=== PATIENT | female | born 1950 | race Caucasian/White ===

== ENCOUNTER 2024-09-13 12:37 | Emergency (ER) | payer MEDICARE ==
[2024-09-13 13:55] VITALS: BP 141/97; PULSE 64; RESP 18; TEMP 96.9; O2SAT 98
[2024-09-13 14:32] LABS: Appearance Clear (Clear); Bacteria None Seen /HPF (None Seen); Bilirubin Negative (Negative); Blood Negative (Negative); Epithelial Cells None Seen /HPF (None Seen); Glucose, Urine 500 mg/dL (Negative); Hyaline Casts NONE SEEN /LPF (0-2); Ketones Negative (Negative); Leukocyte Esterase Negative (Negative); Nitrite Negative (Negative); Ph 6.5 (4.6-8.0); Protein,Urine Dip Negative (Negative); RBC 0-2 /HPF (0-5); Urobilinogen 0.2 mg/dL (0.2); WBC 0-2 /HPF (0-5)
[2024-09-13 14:42] LABS: Absolute Neutrophil Ct (ANC) 4.69 x10^3/uL (1.56-6.13); BASOPHIL % 0.3 % (0.1-1.2); Basophil (Absolute #) 0.02 x10^3/uL (0.01-0.08); Eosinophil % 2.3 % (0.7-5.8); Eosinophil (Absolute #) 0.17 x10^3/uL (0.04-0.36); Hematocrit 42.8 % (34.1-44.9); Hemoglobin 13.9 g/dL (11.2-15.7); IMMATURE GRAN # 0.03 x10^3u/L (0.001-0.031); IMMATURE GRAN % 0.4 % (0.001-0.429); Lymphocyte (Absolute #) 2.08 x10^3/uL (1.18-3.74); Lymphocytes % 27.6 % (19.3-51.7); Mean Cell Volume 84.1 fL (79.4-94.8); Mean Corpuscular Hemoglobin 27.3 pg (25.6-32.2); Mean Corpuscular Hgb Concent. 32.5 g/dL (32.2-35.5); Mean Platelet Volume 10.2 fL (9.4-12.3); Monocyte (Absolute #) 0.54 x10^3/uL (0.24-0.86); Monocytes % 7.2 % (4.7-12.5); Neutrophil % 62.2 % (34.0-71.1); Platelet Count 183 x10^3/uL (182-369); Red Blood Count 5.09 x10^6/uL (3.93-5.22); Red Cell Distribution Width 13.7 % (11.7-14.4); White Blood Count 7.5 x10^3/uL (3.98-10.04)
[2024-09-13 15:06] LABS: ALBUMIN 4.1 g/dL (3.5-5.0); ALKALINE PHOSPHATASE 117 U/L (38-126); ANION GAP 10.3 MEQ/L (5-15); BLOOD UREA NITROGEN 14 mg/dL (7-17); CHLORIDE 102 mmol/L (98-107); Calcium 9.5 mg/dL (8.4-10.2); Carbon Dioxide 31 mmol/L (22-30); Creatinine 1 0.69 mg/dL (0.52-1.04); EST GLOMERULAR FILTRATION RATE 90.5 ML/MIN; Glucose 106 mg/dL (74-106); Potassium 3.9 mmol/L (3.5-5.1); SGOT/AST 28 U/L (14-36); SGPT/ALT 21 U/L (0-35); SODIUM 139 mmol/L (135-145); TROPONIN < 0.012 ng/mL (0.000-0.033); Total Protein 7.6 g/dL (6.3-8.2)
--- NOTE | 2024-09-13 15:17 | XRAY ---
Indication: Speech change one month. Multiple contiguous axial images obtained through the head without contrast. Comparison: None Age-appropriate global atrophy and mild periventricular degenerative micro-ischemia bilaterally. Remote lacunar infarct right caudate head and left basal ganglia. No acute intracranial hemorrhage, abnormal extra axial fluid collection, or mass effect. Fourth ventricle is midline without hydrocephalus. Bony calvarium intact. Visualized paranasal sinuses and mastoid air cells are clear. Impression: Nonacute senile brain. Remote lacunar infarcts right caudate head and left basal ganglia.
--- NOTE | 2024-09-13 16:05 | ERPHSYRPT ---
- History of Present Illness Time Seen by Provider: 09/13/24 13:53 Source: patient, family Exam Limitations: no limitations Patient Subjective Stated Complaint: PT. STATES, "I HAVE HAD TROUBLE WITH MY SPEECH FOR MONTHS, BUT MY FAMILY GOT WORRIED LAST NIGHT AND WANTED ME TO GET CHECKED! I LOST MY ACCUCHECK MACHINE SO I COULDN'T CHECK BY SUGAR AND I THOUGHT IT MAY BE LOW AND AFFECTING MY SPEECH." Triage Nursing Assessment: PT PRESENTS TO ER AMBULATORY WITHOUT DIFF, A&OX3, SPEECH IS CLEAR. RESP EVEN UNLABORED. ABLE TO MOVE ALL FOUR EXT. NO WEAKNESS. Physician History: 74-year-old female with history of hypertension, diabetes mellitus presented to the ER with complaints of issues with speech for over a month. Patient reports it seems like she is struggling with words at times. Patient called her primary care today and is sent to the ER for further evaluation. Patient does not report any worsening today. She thinks it is because of her lower denture is out and may be not articulating very well. Denies any headache, visual disturbance, numbness tingling or focal weakness. Patient is accompanied by son who does attest to having these symptoms for more than a month and no new worsening. Allergies/Adverse Reactions: No Known Drug Allergies Allergy (Verified 09/13/24 14:10) Home Medications: Empagliflozin/Metformin HCl [Synjardy Xr 10-1,000 mg Tablet] 1 tab PO DAILY 09/13/24 [History] Gabapentin [Neurontin ] 1 tab PO DAILY 09/13/24 [History] Semaglutide [Ozempic] 0.25 mg IN WEEKLY 09/13/24 [History] Hx Tetanus, Diphtheria Vaccination/Date Given: Yes Hx Influenza Vaccination/Date Given: Yes Hx Pneumococcal Vaccination/Date Given: Yes Immunizations Up to Date: No Travel Risk - International Travel Have you traveled outside of the country in past 3 weeks: No - Emerging Infectious Disease Are you exhibiting symptoms associated with any current EIDs: No - Review of Systems Constitutional: No Symptoms Eyes: No Symptoms Ears, Nose, & Throat: No Symptoms Respiratory: No Symptoms Cardiac: No Symptoms Abdominal/Gastrointestinal: No Symptoms Genitourinary Symptoms: No Symptoms Musculoskeletal: No Symptoms Skin: No Symptoms Neurological: Speech Changes Psychological: No Symptoms Hematologic/Lymphatic: No Symptoms Immunological/Allergic: No Symptoms - Past Medical History Endocrine Medical History: Diabetes Type II - Past Surgical History Past Surgical History: Yes Neuro Surgical History: No Pertinent History Cardiac: No Pertinent History Respiratory: No Pertinent History Gastrointestinal: No Pertinent History Genitourinary: No Pertinent History Female Surgical History: Tubal Ligation Other Surgical History: COLON RESECTION D/T COLON CA - Social History Smoking Status: Former smoker Exposure to second hand smoke: Yes Drug Use: none - Social Determinants of Health Will the patient participate in the screening: Yes Do you worry about a steady place to live?: No Do you have any problems with any of the following?: No known problems In the past 12 months,have you had to go without utilities?: No Transportation Issues: No Has anyone in your support network made you feel unsafe?: No Have you or anyone in your house had to go without enough: No - Nursing Vital Signs Nursing Vital Signs: Initial Vital Signs Temperature 96.9 F 09/13/24 13:46 Pulse Rate 64 09/13/24 13:46 Respiratory Rate 18 09/13/24 13:46 Blood Pressure 141/97 09/13/24 13:46 O2 Sat by Pulse Oximetry 98 09/13/24 13:46 Pain Scale Pain Intensity 0 - Physical Exam General Appearance: no apparent distress, alert Eye Exam: PERRL/EOMI Ears, Nose, Throat Exam: normal ENT inspection, TMs normal, pharynx normal, moist mucous membranes Neck Exam: normal inspection, non-tender, supple, full range of motion Respiratory Exam: normal breath sounds, lungs clear Cardiovascular Exam: regular rate/rhythm, normal heart sounds Gastrointestinal/Abdomen Exam: soft, normal bowel sounds, No tenderness Back Exam: normal inspection, normal range of motion Extremity Exam: normal inspection, normal range of motion, pelvis stable Neurologic Exam: alert, oriented x 3, cooperative, jewelry facer II-XII nml as tested, normal mood/affect, nml cerebellar function, sensation nml, No motor deficits Skin Exam: normal color SpO2 Interpretation: normal SpO2: 98 O2 Delivery: Room Air - Course EKG Interpreted by Me: RATE (64), Sinus Rhythm, NORMAL AXIS, NORMAL INTERVALS, NORMAL QRS Ordered Tests: Active Orders 24 hr Category Date Time Status Screen Cutter And Trimmer STAT Care 09/13/24 14:16 Active EKG-ER Only STAT Care 09/13/24 14:15 Active HEAD WITHOUT CONTRAST [CT] Stat Exams 09/13/24 14:16 Completed CBC W DIFF Stat Lab 09/13/24 14:15 Completed CMP Stat Lab 09/13/24 14:42 Completed MAGNESIUM Stat Lab 09/13/24 14:42 Completed TROPONIN Q4H Lab 09/13/24 14:42 Completed TROPONIN Q4H Lab 09/13/24 18:15 Ordered TROPONIN Q4H Lab 09/13/24 22:15 Ordered UA W/RFX UR CULTURE Stat Lab 09/13/24 14:24 Completed Lab/Rad Data: Laboratory Result Diagrams 09/13/24 14:15 09/13/24 14:42 Laboratory Results 09/13/24 09/13/24 09/13/24 Range/Units 14:42 14:24 14:15 WBC 7.5 (3.98-10.04) x10^3/uL RBC 5.09 (3.93-5.22) x10^6/uL Hgb 13.9 (11.2-15.7) g/dL Hct 42.8 (34.1-44.9) % MCV 84.1 (79.4-94.8) fL MCH 27.3 (25.6-32.2) pg MCHC 32.5 (32.2-35.5) g/dL RDW 13.7 (11.7-14.4) % Plt Count 183 (182-369) x10^3/uL MPV 10.2 (9.4-12.3) fL Gran % 62.2 (34.0-71.1) % Immature Gran % (Auto) 0.4 (0.001-0.429) % Nucleat RBC Rel Count 0.0 (0.00-0.2) % Eos # (Auto) 0.17 (0.04-0.36) x10^3/uL Immature Gran # (Auto) 0.03 (0.001-0.031) x10^3u/L Absolute Lymphs (auto) 2.08 (1.18-3.74) x10^3/uL Absolute Monos (auto) 0.54 (0.24-0.86) x10^3/uL Absolute Nucleated RBC 0.00 (0.00-0.012) x10^3u/L Lymphocytes % 27.6 (19.3-51.7) % Monocytes % 7.2 (4.7-12.5) % Eosinophils % 2.3 (0.7-5.8) % Basophils % 0.3 (0.1-1.2) % Absolute Granulocytes 4.69 (1.56-6.13) x10^3/uL Basophils # 0.02 (0.01-0.08) x10^3/uL Sodium 139 (135-145) mmol/L Potassium 3.9 (3.5-5.1) mmol/L Chloride 102 (98-107) mmol/L Carbon Dioxide 31 H (22-30) mmol/L Anion Gap 10.3 (5-15) MEQ/L BUN 14 (7-17) mg/dL Creatinine 0.69 (0.52-1.04) mg/dL Estimated GFR 90.5 ML/MIN Glucose 106 (74-106) mg/dL Calcium 9.5 (8.4-10.2) mg/dL Magnesium 2.0 (1.6-2.3) mg/dL Total Bilirubin 0.70 (0.2-1.3) mg/dL AST 28 (14-36) U/L ALT 21 (0-35) U/L Alkaline Phosphatase 117 (38-126) U/L Troponin I < 0.012 (0.000-0.033) ng/mL Serum Total Protein 7.6 (6.3-8.2) g/dL Albumin 4.1 (3.5-5.0) g/dL Urine Color Yellow (Yellow) Urine Appearance Clear (Clear) Urine pH 6.5 (4.6-8.0) Ur Specific [place] 1.010 (1.005-1.030) Urine Protein Negative (Negative) Urine Glucose (UA) 500 A (Negative) mg/dL Urine Ketones Negative (Negative) Urine Blood Negative (Negative) Urine Nitrite Negative (Negative) Urine Bilirubin Negative (Negative) Urine Urobilinogen 0.2 (0.2) mg/dL Ur Leukocyte Esterase Negative (Negative) U Hyaline Cast (Auto) NONE SEEN (0-2) /LPF Urine Microscopic RBC 0-2 (0-5) /HPF Urine Microscopic WBC 0-2 (0-5) /HPF Ur Epithelial Cells None Seen (None Seen) /HPF Urine Bacteria None Seen (None Seen) /HPF Urine Culture Reflexed NO (NO) - Progress Progress: unchanged Progress Note: 09/13/24 16:03 74-year-old is evaluated in the ER for changes in speech for almost over a month. Patient has no obvious difficulty speech. When upper dentures are removed her speech is better. Could have some element of lower denture which she is not using for quite some time. Patient has no focal neurodeficit otherwise. Normal white count, unremarkable chemistries and CT showed old infarct and no new findings. I do not think patient needs to be admitted and need for inpatient workup but can refer outpatient follow-up with primary care and neurology for further evaluation. Discussed signs symptoms of worsening needing return to ER which patient/family seem understanding. Stable for discharge. Counseled pt/family regarding: lab results, diagnosis, need for follow-up, rad results Medical Desision Making - Independent Historian Additional History obtained from: Child - Diagnostic Testing Diagnostic test were ordered, analyzed, and reviewed by me: Yes Radiological Interpretation: Reviewed by me - Departure Departure Disposition: Home Clinical Impression: Alteration in speech Condition: Stable Critical Care Time: No Referrals: DARYL LUBIN MD [Primary Care Provider] - Follow up with PCP 1 day ROSA M HAMILTON [NON-STAFF PHY W/O PRIVILEGES] - Follow up/PCP as directed (Call for appointment for reevaluation) Instructions: Dysarthria Additional Instructions: Follow-up with primary care and neurology for reevaluation. Use your dentures. Return to ER if having difficulty speech, numbness tingling focal weakness or visual disturbance etc.
== END 2024-09-13 16:56 | disposition home or self-care (01) ==
LOC: ED 12:37
DX: R47.9 Unspecified speech disturbances (principal); I10 Essential (primary) hypertension; E11.9 Type 2 diabetes mellitus without complications; Z79.84 Long term (current) use of oral hypoglycemic drugs; Z79.85 Long-term (current) use of injectable non-insulin antidiabetic drugs; Z79.899 Other long term (current) drug therapy
CPT/HCPCS: 36415; 70450; 80053; 81001; 83735; 84484; 85025; 93005; 99283; 99285

== ENCOUNTER 2025-02-20 14:48 | Emergency (ER) | payer MEDICARE ==
[2025-02-20 15:49] VITALS: RESP 18; TEMP 97.4
[2025-02-20 16:04] VITALS: O2SAT 96
[2025-02-20 16:26] LABS: Absolute Neutrophil Ct (ANC) 11.47 x10^3/uL (1.56-6.13); BASOPHIL % 0.1 % (0.1-1.2); Basophil (Absolute #) 0.02 x10^3/uL (0.01-0.08); Eosinophil % 0.1 % (0.7-5.8); Eosinophil (Absolute #) 0.02 x10^3/uL (0.04-0.36); Hematocrit 46.7 % (34.1-44.9); Hemoglobin 15.4 g/dL (11.2-15.7); IMMATURE GRAN # 0.07 x10^3u/L (0.001-0.031); IMMATURE GRAN % 0.5 % (0.001-0.429); Lymphocyte (Absolute #) 1.36 x10^3/uL (1.18-3.74); Lymphocytes % 9.6 % (19.3-51.7); Mean Cell Volume 82.9 fL (79.4-94.8); Mean Corpuscular Hemoglobin 27.4 pg (25.6-32.2); Mean Platelet Volume 10.1 fL (9.4-12.3); Monocyte (Absolute #) 1.18 x10^3/uL (0.24-0.86); Monocytes % 8.4 % (4.7-12.5); Neutrophil % 81.3 % (34.0-71.1); Platelet Count 219 x10^3/uL (182-369); Red Blood Count 5.63 x10^6/uL (3.93-5.22); Red Cell Distribution Width 14.4 % (11.7-14.4); White Blood Count 14.1 x10^3/uL (3.98-10.04)
[2025-02-20 16:37] LABS: ALBUMIN 4.3 g/dL (3.5-5.0); ANION GAP 14.3 MEQ/L (5-15); BILIRUBIN,TOTAL 1.1 mg/dL (0.2-1.3); Calcium 9.1 mg/dL (8.4-10.2); Creatinine 1 0.74 mg/dL (0.52-1.04); EST GLOMERULAR FILTRATION RATE 84.3 ML/MIN; Potassium 3.9 mmol/L (3.5-5.1); Total Protein 7.5 g/dL (6.3-8.2)
--- NOTE | 2025-02-20 17:12 | XRAY ---
Indication: Pain following fall. Comparison: None 2 view right ribs demonstrates osteopenia, moderate right shoulder degenerative arthropathy, and minimal/mild multilevel degenerative spondylosis. No other bony, articular, or soft tissue abnormalities. Single PA chest demonstrates normal heart and lungs. Remaining bony thorax intact with osteopenia and moderate left shoulder degenerative arthropathy. Impression: Nonacute right ribs and PA chest with chronic features.
--- NOTE | 2025-02-20 17:16 | XRAY ---
Indication: Pain following fall. Multiple contiguous axial images obtained through the head without contrast. Comparison: September 13, 2024 Again age-appropriate global atrophy and mild periventricular degenerative micro-ischemia bilaterally. No acute intracranial hemorrhage, abnormal extra-axial fluid collection, or mass effect. Fourth ventricle is midline without hydrocephalus. New small right frontal scalp hematoma. Bony calvarium intact. Visualized paranasal sinuses and mastoid air cells are clear. Impression: New right frontal scalp hematoma. Otherwise continued nonacute senile brain.
--- NOTE | 2025-02-20 17:18 | XRAY ---
Indication: Pain following fall. Multiple contiguous axial images obtained through the cervical spine. Sagittal and coronal reformatted images obtained. Comparison: None Osseous structures demineralized consistent with patient's age. Axial images negative for acute fracture, suspicious bony lesions, or spinal canal stenosis. Facets are symmetric. Sagittal and coronal reformatted images demonstrates normal alignment with vertebral body heights/disc spaces maintained. No acute compression fracture, subluxation, or jumped facet. Normal appearing craniocervical junction. Visualized noncontrasted soft tissues demonstrates mild bilateral carotid and aortic arch calcifications. Lung apices clear. Impression: Osteopenia and arteriosclerotic disease. Remaining CT cervical spine is negative.
--- NOTE | 2025-02-20 17:20 | ERPHSYRPT ---
- History of Present Illness Time Seen by Provider: 02/20/25 15:06 Source: patient, family Exam Limitations: no limitations Patient Subjective Stated Complaint: PT states "I went out with my dogs and I stumbled and fell hitting my head. I also think I cracked a rib." Triage Nursing Assessment: Pt presented alert and oriented X 3, skin wpd. pt ambulates with assistance, able to speak in clear full sentences. Pt resting comfortably on the bed. Pt has large hematoma noted to right forehead, tenderness to right lower ribs. Physician History: 74-year-old female with a history of diabetes mellitus, CAD, on Eliquis presented in the ER after she stumbled while she was walking her dog and fell on concrete this morning. Patient reports she did hit her head on the right forehead area without LOC. Also hit her right lower ribs and felt as if she cracked her rib. No difficulty breathing. Denies any chest pain palpitations or shortness of breath before or after the fall. No vomiting. Complaining of mild headache and aches and pains all over. Patient was not able to get up and crawled herself out of the patio to get for some help but she was on the floor for almost 6 hours. She has superficial abrasions to the right hand but no pain. No injury anywhere else reported. Allergies/Adverse Reactions: No Known Drug Allergies Allergy (Verified 09/13/24 14:10) Home Medications: Empagliflozin/Metformin HCl [Synjardy Xr 10-1,000 mg Tablet] 1 tab PO DAILY 09/13/24 [History] Gabapentin [Neurontin ] 1 tab PO DAILY 09/13/24 [History] Semaglutide [Ozempic] 0.25 mg IN WEEKLY 09/13/24 [History] Apixaban [Eliquis 2.5 mg Tablet] 5 mg PO BID 02/20/25 [History] Rosuvastatin Calcium 10 mg PO DAILY 02/20/25 [History] Hx Tetanus, Diphtheria Vaccination/Date Given: Yes Hx Influenza Vaccination/Date Given: Yes Hx Pneumococcal Vaccination/Date Given: Yes Immunizations Up to Date: No Travel Risk - International Travel Have you traveled outside of the country in past 3 weeks: No - Emerging Infectious Disease Are you exhibiting symptoms associated with any current EIDs: No - Review of Systems Constitutional: No Symptoms Eyes: No Symptoms Ears, Nose, & Throat: No Symptoms Respiratory: No Symptoms Cardiac: Chest Pain Abdominal/Gastrointestinal: No Symptoms Genitourinary Symptoms: No Symptoms Musculoskeletal: Arthralgias, Fall, Injury Skin: No Symptoms Neurological: Headache Psychological: No Symptoms Endocrine: No Symptoms Hematologic/Lymphatic: Easy Bleeding Immunological/Allergic: No Symptoms - Past Medical History Endocrine Medical History: Diabetes Type II - Past Surgical History Past Surgical History: Yes Neuro Surgical History: No Pertinent History Cardiac: No Pertinent History Respiratory: No Pertinent History Gastrointestinal: No Pertinent History Genitourinary: No Pertinent History Female Surgical History: Tubal Ligation Other Surgical History: COLON RESECTION D/T COLON CA - Social History Smoking Status: Former smoker Exposure to second hand smoke: Yes Drug Use: none - Social Determinants of Health Will the patient participate in the screening: Yes Do you worry about a steady place to live?: No Do you have any problems with any of the following?: No known problems In the past 12 months,have you had to go without utilities?: No Transportation Issues: No Has anyone in your support network made you feel unsafe?: No Have you or anyone in your house had to go w/o enough food: No - Nursing Vital Signs Nursing Vital Signs: Initial Vital Signs Temperature 97.4 F 02/20/25 15:44 Pulse Rate 84 02/20/25 15:44 Respiratory Rate 18 02/20/25 15:44 Blood Pressure 153/99 02/20/25 15:44 O2 Sat by Pulse Oximetry 98 02/20/25 15:44 Pain Scale Pain Intensity 5 - Orange Coma Score Best Eye Response (Orange): (4) open spontaneously Best Verbal Response (Orange): (5) oriented Best Motor Response ([place]): (6) obeys commands Orange Total: 15 - Physical Exam General Appearance: no apparent distress, alert Head Injury: contusions, ecchymosis, swelling, tenderness (Right forehead with no step in deformity) Eye Exam: PERRL/EOMI, eyes nml inspection ENT Exam: airway nml, No evidence of ENT injury, No dental injury Neck Exam: supple, trachea midline, full range of motion, normal alignment Respiratory/Chest Exam: chest tenderness (Right lower chest wall with no crepitus or flail segment), normal breath sounds, No respiratory distress Cardiovascular Exam: normal heart sounds, regular rate/rhythm Gastrointestinal Exam: soft, normal bowel sounds, No tenderness Back Exam: normal inspection, normal range of motion Extremity Exam: normal inspection, normal range of motion, pelvis stable Neurologic Exam: alert, oriented x 3, cooperative Skin Exam: normal color, other (Abrasion right hand with no tenderness) SpO2 Interpretation: normal SpO2: 96 O2 Delivery: Room Air Ordered Tests: Active Orders 24 hr Category Date Time Status CERVICAL SPINE WO CONTRAST [CT] Stat Exams 02/20/25 16:02 Completed HEAD WITHOUT CONTRAST [CT] Stat Exams 02/20/25 16:02 Completed RIBS UNILATERAL W/ PA CXR Stat Exams 02/20/25 16:02 Completed CBC W DIFF Stat Lab 02/20/25 16:20 Completed CK-Creatinine Phosphokinase Stat Lab 02/20/25 16:20 Completed CMP Stat Lab 02/20/25 16:20 Completed UA W/RFX UR CULTURE Stat Lab 02/20/25 17:19 Completed Lab/Rad Data: Laboratory Result Diagrams 02/20/25 16:20 02/20/25 16:20 Laboratory Results 02/20/25 02/20/25 02/20/25 Range/Units 17:19 16:20 16:20 WBC 14.1 H (3.98-10.04) x10^3/uL RBC 5.63 H (3.93-5.22) x10^6/uL Hgb 15.4 (11.2-15.7) g/dL Hct 46.7 H (34.1-44.9) % MCV 82.9 (79.4-94.8) fL MCH 27.4 (25.6-32.2) pg MCHC 33.0 (32.2-35.5) g/dL RDW 14.4 (11.7-14.4) % Plt Count 219 (182-369) x10^3/uL MPV 10.1 (9.4-12.3) fL Gran % 81.3 H (34.0-71.1) % Immature Gran % (Auto) 0.5 H (0.001-0.429) % Nucleat RBC Rel Count 0.0 (0.00-0.2) % Eos # (Auto) 0.02 L (0.04-0.36) x10^3/uL Immature Gran # (Auto) 0.07 H (0.001-0.031) x10^3u/L Absolute Lymphs (auto) 1.36 (1.18-3.74) x10^3/uL Absolute Monos (auto) 1.18 H (0.24-0.86) x10^3/uL Absolute Nucleated RBC 0.00 (0.00-0.012) x10^3u/L Lymphocytes % 9.6 L (19.3-51.7) % Monocytes % 8.4 (4.7-12.5) % Eosinophils % 0.1 L (0.7-5.8) % Basophils % 0.1 (0.1-1.2) % Absolute Granulocytes 11.47 H (1.56-6.13) x10^3/uL Basophils # 0.02 (0.01-0.08) x10^3/uL Sodium 139 (135-145) mmol/L Potassium 3.9 (3.5-5.1) mmol/L Chloride 101 (98-107) mmol/L Carbon Dioxide 27 (22-30) mmol/L Anion Gap 14.3 (5-15) MEQ/L BUN 13 (7-17) mg/dL Creatinine 0.74 (0.52-1.04) mg/dL Estimated GFR 84.3 ML/MIN Glucose 151 H (74-106) mg/dL Calcium 9.1 (8.4-10.2) mg/dL Total Bilirubin 1.10 (0.2-1.3) mg/dL AST 39 H (14-36) U/L ALT 23 (0-35) U/L Alkaline Phosphatase 131 H (38-126) U/L Creatine Kinase 266 H (30-135) U/L Serum Total Protein 7.5 (6.3-8.2) g/dL Albumin 4.3 (3.5-5.0) g/dL Urine Color Yellow (Yellow) Urine Appearance Clear (Clear) Urine pH 5.0 (4.6-8.0) Ur Specific [place] >=1.030 A (1.005-1.030) Urine Protein Negative (Negative) Urine Glucose (UA) >=1000 A (Negative) mg/dL Urine Ketones Trace A (Negative) Urine Blood Negative (Negative) Urine Nitrite Negative (Negative) Urine Bilirubin Negative (Negative) Urine Urobilinogen 1.0 A (0.2) mg/dL Ur Leukocyte Esterase Negative (Negative) U Hyaline Cast (Auto) NONE SEEN (0-2) /LPF Urine Microscopic RBC 0-2 (0-5) /HPF Urine Microscopic WBC 0-2 (0-5) /HPF Ur Epithelial Cells None Seen (None Seen) /HPF Urine Bacteria None Seen (None Seen) /HPF Urine Culture Reflexed NO (NO) - Progress Progress: improved, pain not gone completely, re-examined Progress Note: 02/20/25 18:09 74-year-old is evaluated in the ER for ground-level mechanical fall where she was not able to get up until she had some help available and was on the floor for few hours. She is given symptomatic treatment, feeling better on reevaluation and was able to ambulate to the bathroom without assistance. I have obtained CT head and cervical spine which are negative for any acute trauma findings. X-rays chest and rib series on the right are negative for acute rib fracture, pneumothorax or any other acute intrathoracic findings interpreted by me initially followed by official read. Since patient was on the floor for few hours, I have obtained baseline workup with white count of 14, chemistries with a CK level only 266. It is a minimal elevation, recommended increase hydration. Recommended using Tylenol as needed and use cane/walker for ambulation to avoid a fall. Discussed signs symptoms of worsening needing return to ER which she seems understanding. Stable for discharge. Shared the results of workup and plan of discharge with patient and son which they seem understanding. Complexity of problems addressed: Acute moderate Complexity of data reviewed/analyzed: Moderate to extensive Risk of complication, low risk Counseled pt/family regarding: lab results, diagnosis, need for follow-up, rad results Medical Desision Making - Independent Historian Additional History obtained from: Child - Diagnostic Testing Diagnostic test were ordered, analyzed, and reviewed by me: Yes Radiological Interpretation: Interpreted by me, Reviewed by me - Risk of complications The pt has a mod risk of morbidity or mortality based on: Need for prescription drug management - Departure Departure Disposition: Home Clinical Impression: Forehead contusion, Chest wall contusion, Ground-level fall Condition: Stable Critical Care Time: No Referrals: DARYL LUBIN MD [Primary Care Provider, INTERNAL MEDICINE] - Follow up with PCP 1 day Instructions: Contusion (DC), Preventing falls in adults Additional Instructions: Intermittent ice application. Take Tylenol as needed. Drink plenty of fluids to keep yourself well-hydrated. Follow-up with primary care for reevaluation. Return to ER for worsening of headache, visual changes, numbness tingling focal weakness, difficulty breathing/chest pain etc. Use cane/walker for ambulation to avoid a fall.
[2025-02-20 17:25] LABS: Appearance Clear (Clear); Bacteria None Seen /HPF (None Seen); Bilirubin Negative (Negative); Blood Negative (Negative); Epithelial Cells None Seen /HPF (None Seen); Glucose, Urine >=1000 mg/dL (Negative); Hyaline Casts NONE SEEN /LPF (0-2); Ketones Trace (Negative); Leukocyte Esterase Negative (Negative); Nitrite Negative (Negative); Protein,Urine Dip Negative (Negative); RBC 0-2 /HPF (0-5); Specific Gravity >=1.030 (1.005-1.030); WBC 0-2 /HPF (0-5)
[2025-02-20 18:16] VITALS: BP 150/90; PULSE 80
[2025-02-20] MEDS ORDERED: NORCO 5/325 MG ONE (18:24)
[2025-02-20] MEDS: NORCO 5/325 MG PO ONE (18:25)
[2025-02-20] MEDS: Tylenol #3 Tablet PO ONE (18:32)
== END 2025-02-20 18:33 | disposition home or self-care (01) ==
LOC: ED 14:48
DX: S00.83XA Contusion of other part of head, initial encounter (principal); S20.211A Contusion of right front wall of thorax, initial encounter; W01.0XXA Fall on same level from slipping, tripping and stumbling without subsequent striking against object, initial encounter; Y93.K1 Activity, walking an animal; Z79.01 Long term (current) use of anticoagulants; Z79.84 Long term (current) use of oral hypoglycemic drugs; Z79.85 Long-term (current) use of injectable non-insulin antidiabetic drugs; Z79.899 Other long term (current) drug therapy
CPT/HCPCS: 36415; 70450; 71101; 72125; 80053; 81001; 82550; 85025; 99284; 99285; A9270-GY